=== PATIENT | male | born 1990 | race Caucasian/White ===

== ENCOUNTER 2017-05-30 11:52 | Emergency (ER) | payer SELFPAY ==
[2017-05-30] MEDS ORDERED: Sodium Chloride 0.9% 10 ML Syringe FLUSH PRN (12:16)
[2017-05-30] MEDS ORDERED: Sodium Chloride 0.9% 2.5 ML Syringe FLUSH PRN (12:16)
[2017-05-30] MEDS ORDERED: Sodium Chloride 0.9% 1,000 ML IV ONE (12:16)
[2017-05-30] MEDS ORDERED: Ondansetron 4 MG/2 ML SDV IVPUSH ONE (12:16)
--- NOTE | 2017-05-30 12:19 | EDM.PDOC ---
ED HPI GENERAL MEDICAL PROBLEM - General Chief Complaint: General Stated Complaint: vomiting,cough Time Seen by Provider: 05/30/17 12:09 - History of Present Illness INITIAL COMMENTS - FREE TEXT/NARRATIVE: HISTORY AND PHYSICAL: History of present illness: The patient is a healthy 27-year-old male with a history of appendectomy and inguinal hernia repair and presents with complaints of profuse repetitive vomiting that started last night after he got home from work. Patient says that he had a normal day and ate normally but did have leftover [place] food for dinner. He said they certainly started feeling nauseated and then had multiple episodes of vomiting and feels like he cannot tolerate anything by mouth. He is feeling lightheaded but has not passed out and has no chest pain or shortness of breath but does have a headache since after vomiting. Patient has felt feverish and chilly but has not documented temperature and has no upper respiratory complaints. He complains of no abdominal pain and no diarrhea. He has not had recent travel and he did not try any [id number] medications for these symptoms ;he denies alcohol use Review of systems: As per history of present illness and below otherwise all systems reviewed and negative. Past medical history: As per history of present illness and as reviewed below otherwise noncontributory. Surgical history: As per history of present illness and as reviewed below otherwise noncontributory. Social history: No reported history of drug or alcohol abuse. Family history: As per history of present illness and as reviewed below otherwise noncontributory. Physical exam: Gen.: Well-developed well-nourished thin man who is nontoxic and speaking clearly and easily. Vital signs of been reviewed by me HEENT: Atraumatic, normocephalic, pupils reactive, negative for conjunctival pallor or scleral icterus, mucous membranes tacky, throat clear, neck supple, nontender, trachea midline. Lungs: Clear to auscultation, breath sounds equal bilaterally, chest nontender. Heart: S1S2, regular rate and rhythm no overt murmurs Abdomen: Soft, nondistended, nontender. NABS Pelvis: Deferred Genitourinary: Deferred. Rectal: Deferred. Extremities: Atraumatic, negative for cords or calf pain. Neurovascular unremarkable. Neuro: Awake, alert, oriented. Cranial nerves II through XII unremarkable. Cerebellum unremarkable. Motor and sensory unremarkable throughout. Exam nonfocal. Diagnostics: CBC CMP amylase lipase UA Therapeutics: IV fluids Zofran--- these note that the patient refused the IV because he is afraid of needles rule out the blood draw to occur. I will give him Zofran ODT 1335:Patient is currently taking a by mouth challenge. He is aware that all labs are normal and that if he tolerates by mouth that we can go ahead and plan discharge Impression: Vomiting resolved Definitive disposition and diagnosis as appropriate pending reevaluation and review of above. - Related Data Allergies Allergy/AdvReac Type Severity Reaction Status Date / Time pseudoephedrine Allergy Hyperactivi Verified 05/30/17 12:08 [From Actifed] ty triprolidine [From Actifed] Allergy Hyperactivi Verified 05/30/17 12:08 ty Home Meds: Home Meds . [No Known Home Meds] 05/30/17 [History] ED ROS GENERAL - Review of Systems Review Of Systems: ROS reveals no pertinent complaints other than HPI. ED EXAM, GENERAL - Physical Exam Exam: See Below (See dictation) Course - Vital Signs Last Recorded V/S: Last Vital Signs Temp 36.9 C 05/30/17 12:04 Pulse 76 05/30/17 12:04 Resp 16 05/30/17 12:04 BP 110/59 L 05/30/17 12:04 Pulse Ox 98 05/30/17 12:04 - Orders/Labs/Meds Labs: Laboratory Tests 05/30/17 05/30/17 05/30/17 Range/Units 12:23 12:23 13:30 WBC 7.37 (4.0-11.0) K/uL RBC 4.48 L (4.50-5.90) M/uL Hgb 15.3 (13.0-17.0) g/dL Hct 44.0 (38.0-50.0) % MCV 98.2 H (80.0-98.0) fL MCH 34.2 H (27.0-32.0) pg MCHC 34.8 (31.0-37.0) g/dL RDW Std Deviation 46.7 (28.0-62.0) fl RDW Coeff of Jami 13 (11.0-15.0) % Plt Count 343 (150-400) K/uL MPV 10.10 (7.40-12.00) fL Neut % (Auto) 34.3 L (48.0-80.0) % Lymph % (Auto) 54.4 H (16.0-40.0) % [place] % (Auto) 8.7 (0.0-15.0) % Eos % (Auto) 1.8 (0.0-7.0) % Baso % (Auto) 0.8 (0.0-1.5) % Neut # (Auto) 2.5 (1.4-5.7) K/uL Lymph # (Auto) 4.0 H (0.6-2.4) K/uL [place] # (Auto) 0.6 (0.0-0.8) K/uL Eos # (Auto) 0.1 (0.0-0.7) K/uL Baso # (Auto) 0.1 (0.0-0.1) K/uL Nucleated RBC % 0.0 /100WBC Nucleated RBCs # 0 K/uL Sodium 141 (136-146) mmol/L Potassium 4.2 (3.5-5.1) mmol/L Chloride 108 (98-110) mmol/L Carbon Dioxide 25 (21-31) mmol/L BUN 17 (6.0-23.0) mg/dL Creatinine 0.8 (0.6-1.5) mg/dL Est Cr Clr Drug Dosing 97.22 mL/min Estimated GFR (MDRD) > 60.0 ml/min Glucose 86 (60-110) mg/dL Calcium 9.7 (8.8-10.8) mg/dL Total Bilirubin 0.7 (0.1-1.5) mg/dL AST 23 (5-40) IU/L ALT 24 (8-54) IU/L Alkaline Phosphatase 99 (40-150) Total Protein 7.8 (6.0-8.0) g/dL Albumin 4.7 (3.5-5.0) g/dL Globulin 3.1 (2.0-3.5) g/dL Albumin/Globulin Ratio 1.5 (1.3-2.8) Amylase 40 (10-90) U/L Lipase 14 (7-80) U/L Urine Color YELLOW Urine Appearance CLEAR Urine pH 6.0 (5.0-8.0) Ur Specific [place] >= 1.030 (1.001-1.035) Urine Protein NEGATIVE (NEGATIVE) mg/dL Urine Glucose (UA) NEGATIVE (NEGATIVE) mg/dL Urine Ketones NEGATIVE (NEGATIVE) mg/dL Urine Occult Blood NEGATIVE (NEGATIVE) Urine Nitrite NEGATIVE (NEGATIVE) Urine Bilirubin NEGATIVE (NEGATIVE) Urine Urobilinogen 0.2 (<2.0) EU/dL Ur Leukocyte Esterase NEGATIVE (NEGATIVE) Urine RBC NONE SEEN (0-2/HPF) Urine WBC 0-2 (0-5/HPF) Ur Epithelial Cells RARE (NONE-FEW) Urine Bacteria FEW (NEGATIVE) Urine Mucus LIGHT (NONE-MOD) Meds: Medications Discontinued Medications Generic Name Dose Route Start Last Admin Trade Name Freq PRN Reason Stop Dose Admin Sodium Chloride 1,000 mls @ 999 mls/hr 05/30/17 12:16 05/30/17 13:38 Normal Saline IV 05/30/17 13:16 Not Given STAT ONE Ondansetron HCl 4 mg 05/30/17 12:16 05/30/17 13:38 Zofran IVPUSH 05/30/17 12:17 Not Given ONETIME ONE Ondansetron HCl 4 mg 05/30/17 13:11 05/30/17 13:16 Zofran Odt PO 05/30/17 13:12 4 mg ONETIME ONE Administration Sodium Chloride 10 ml 05/30/17 12:16 Saline Flush FLUSH ASDIRECTED PRN Keep Vein Open Sodium Chloride 2.5 ml 05/30/17 12:16 Saline Flush FLUSH ASDIRECTED PRN Keep Vein Open Departure - Departure Time of Disposition: 14:00 Disposition: Home, Self-Care 01 Condition: Good Clinical Impression: Vomiting Qualifiers: Vomiting type: unspecified Vomiting Intractability: non-intractable Nausea presence: with nausea Qualified Code(s): R11.2 - Nausea with vomiting, unspecified - Discharge Information Referrals: PCP,None [Primary Care Provider] - Forms: ED Department Discharge Additional Instructions: The following information is given to patients seen in the emergency department who are being discharged to home. This information is to outline your options for follow-up care. We provide all patients seen in our emergency department with a follow-up referral. The need for follow-up, as well as the timing and circumstances, are variable depending upon the specifics of your emergency department visit. If you don't have a primary care physician on staff, we will provide you with a referral. We always advise you to contact your personal physician following an emergency department visit to inform them of the circumstance of the visit and for follow-up with them and/or the need for any referrals to a consulting specialist. The emergency department will also refer you to a specialist when appropriate. This referral assures that you have the opportunity for followup care with a specialist. All of these measure are taken in an effort to provide you with optimal care, which includes your followup. Under all circumstances we always encourage you to contact your private physician who remains a resource for coordinating your care. When calling for followup care, please make the office aware that this follow-up is from your recent emergency room visit. If for any reason you are refused follow-up, please contact the [facility] emergency department at and ask to speak to the emergency department charge nurse. [facility] Primary care- Internal Medicine and Family [place] [phone] Please eat a bland diet and push hydration such as water and Gatorade for the next 24-36 hours. Please follow-up in our clinic in the next few days for reevaluation and further care and return to ER as needed and as discussed
[2017-05-30 13:03] LABS: CHLORIDE,CL 108 mmol/L (98-110); SODIUM,NA 141 mmol/L (136-146)
[2017-05-30] MEDS ORDERED: Ondansetron 4 MG Tab.DIS PO ONE (13:11)
== END 2017-05-30 14:22 | disposition home or self-care (01) ==
LOC: MW.ED 11:52
DX: R11.2 Nausea with vomiting, unspecified (principal); Z88.8 Allergy status to other drugs, medicaments and biological substances; Z90.49 Acquired absence of other specified parts of digestive tract
CPT/HCPCS: 36415; 80053; 81001; 82150; 83690; 85025; 99284; A9270

== ENCOUNTER 2017-07-03 09:34 | Emergency (ER) | payer SELFPAY ==
[2017-07-03] MEDS ORDERED: Ondansetron 4 MG Tab.DIS PO ONE (09:55)
--- NOTE | 2017-07-03 09:57 | EDM.PDOC ---
ED HPI GENERAL MEDICAL PROBLEM - General Chief Complaint: ENT Problem Stated Complaint: COLD RUNNING NOSE Time Seen by Provider: 07/03/17 09:45 Source of Information: Reports: Patient History Limitations: Reports: No Limitations - History of Present Illness INITIAL COMMENTS - FREE TEXT/NARRATIVE: History of present illness: [] Review of systems: As per history of present illness and below otherwise all systems reviewed and negative. Past medical history: As per history of present illness and as reviewed below otherwise noncontributory. Surgical history: As per history of present illness and as reviewed below otherwise noncontributory. Social history: No reported history of drug or alcohol abuse. Family history: As per history of present illness and as reviewed below otherwise noncontributory. Physical exam: General: Well developed, well nourished in NAD HEENT: Atraumatic, normocephalic, pupils reactive, negative for conjunctival pallor or scleral icterus, mucous membranes moist, throat clear, neck supple, nontender, trachea midline. Lungs: Clear to auscultation, breath sounds equal bilaterally, chest nontender. Heart: S1S2, regular, negative for clicks, rubs, or JVD. Abdomen: Soft, nondistended, nontender. Negative for masses or hepatosplenomegaly. Negative for costovertebral tenderness. Pelvis: Stable nontender. Genitourinary: Deferred. Rectal: Deferred. Extremities: Atraumatic, negative for cords or calf pain. Neurovascular unremarkable. Neuro: Awake, alert, oriented. Cranial nerves II through XII unremarkable. Cerebellum unremarkable. Motor and sensory unremarkable throughout. Exam nonfocal. Diagnostics: [] Therapeutics: [] Impression: [] Plan: [] Definitive disposition and diagnosis as appropriate pending reevaluation and review of above. body Pain Score (Numeric/FACES): 4 - Related Data Allergies Allergy/AdvReac Type Severity Reaction Status Date / Time pseudoephedrine Allergy Hyperactivi Verified 07/03/17 09:36 [From Actifed] ty triprolidine [From Actifed] Allergy Hyperactivi Verified 07/03/17 09:36 ty Home Meds: Home Meds . [No Known Home Meds] 05/30/17 [History] Past Medical History - Past Health History Medical/Surgical History: Denies Medical/Surgical History Musculoskeletal History: Reports: Other (See Below) Other Musculoskeletal History: scoliosis Psychiatric History: Reports: ADD, ADHD - Past Surgical History HEENT Surgical History: Reports: Naso-Sinus Surgery GI Surgical History: Reports: Appendectomy, Hernia, Abdominal Social & Family History - Family History Family Medical History: Noncontributory - Tobacco Use Smoking Status *Q: Current Every Day Smoker Years of Tobacco use: 17 Packs/Tins Daily: 1 - Caffeine Use Caffeine Use: Reports: Coffee, Energy Drinks, Soda - Recreational Drug Use Recreational Drug Use: No Drug Use in Last 12 Months: Yes Recreational Drug Type: Reports: Marijuana/Hashish Recreational Drug Use Frequency: Monthly ED ROS GENERAL - Review of Systems Review Of Systems: See Below (See history of present illness) ED EXAM, GENERAL - Physical Exam Exam: See Below (see history of present illness) Course - Vital Signs Last Recorded V/S: Last Vital Signs Temp 99.4 F 07/03/17 09:40 Pulse 86 07/03/17 09:40 Resp 18 07/03/17 09:40 BP 113/54 L 07/03/17 09:40 Pulse Ox 98 07/03/17 09:40 - Orders/Labs/Meds Meds: Medications Discontinued Medications Generic Name Dose Route Start Last Admin Trade Name Freq PRN Reason Stop Dose Admin Ondansetron HCl 4 mg 07/03/17 09:55 07/03/17 10:21 Zofran Odt PO 07/03/17 09:56 4 mg ONETIME ONE Administration Departure - Departure Time of Disposition: 10:29 Disposition: Home, Self-Care 01 Condition: Good Clinical Impression: Viral syndrome - Discharge Information Referrals: PCP,None [Primary Care Provider] - Forms: ED Department Discharge Additional Instructions: The following information is given to patients seen in the emergency department who are being discharged to home. This information is to outline your options for follow-up care. We provide all patients seen in our emergency department with a follow-up referral. The need for follow-up, as well as the timing and circumstances, are variable depending upon the specifics of your emergency department visit. If you don't have a primary care physician on staff, we will provide you with a referral. We always advise you to contact your personal physician following an emergency department visit to inform them of the circumstance of the visit and for follow-up with them and/or the need for any referrals to a consulting specialist. The emergency department will also refer you to a specialist when appropriate. This referral assures that you have the opportunity for follow-up care with a specialist. All of these measure are taken in an effort to provide you with optimal care, which includes your follow-up. Under all circumstances we always encourage you to contact your private physician who remains a resource for coordinating your care. When calling for follow-up care, please make the office aware that this follow-up is from your recent emergency room visit. If for any reason you are refused follow-up, please contact the [facility] Emergency Department at and asked to speak to the emergency department charge nurse. Tylenol or Motrin for fevers and pain use [id number] meds for symptomatic relief follow-up with primary care [facility] [address] [place] [id number]
== END 2017-07-03 10:39 | disposition home or self-care (01) ==
LOC: MW.ED 09:34
DX: B34.9 Viral infection, unspecified (principal); F17.210 Nicotine dependence, cigarettes, uncomplicated; Z88.8 Allergy status to other drugs, medicaments and biological substances
CPT/HCPCS: 87804; 99283; A9270; 99282

== ENCOUNTER 2017-07-05 00:02 | Emergency (ER) | payer SELFPAY ==
--- NOTE | 2017-07-05 00:30 | EDM.PDOC ---
ED HPI GENERAL MEDICAL PROBLEM - General Chief Complaint: General Stated Complaint: LIGHTHEADED/DIZZY Time Seen by Provider: 07/05/17 00:12 - History of Present Illness INITIAL COMMENTS - FREE TEXT/NARRATIVE: HISTORY AND PHYSICAL: History of present illness: The patient is a 27-year-old male who was seen here approximately 30 hours ago on July 03 at 9 AM for complaints of body aches sinus congestion cough runny nose and some intermittent vomiting. He was tested for influenza which was negative and he was advised to do symptomatic care at home. He represented tonight saying that he's feeling somewhat lightheaded woozy and he's having more profound body aches and pains and he is concerned. He has not had vomiting or diarrhea no chest pain or shortness of breath and no abdominal pain. He doesn 't have a specific headache or neck pain but he is terribly congested and feels that he cannot get any fluid out of the sinuses or nose. He had a sore throat but that has improved today. He says he's been drinking a lot of fluids and his been having normal urine output. He has not actually fallen down or passed out with the symptoms but he just feels lightheaded. I personally saw this patient back on May 30 for vomiting after eating Yi food at that time he'll lab work to be done but he refused an IV and IV medications. Review of systems: As per history of present illness and below otherwise all systems reviewed and negative. Past medical history: As per history of present illness and as reviewed below otherwise noncontributory. Surgical history: As per history of present illness and as reviewed below otherwise noncontributory. Social history: No reported history of drug or alcohol abuse. Family history: As per history of present illness and as reviewed below otherwise noncontributory. Physical exam: Gen.: Well-developed well-nourished thin man who is nontoxic and vital signs of been reviewed by me. When the patient speaks he has deep nasal quality to his voice HEENT: Atraumatic, normocephalic, pupils reactive, negative for conjunctival pallor or scleral icterus, mucous membranes moist, throat clear, neck supple, nontender, trachea midline. There is no cervical adenopathy or nuchal rigidity. The turbinates are boggy bilaterally and there is some mild sinus tenderness on palpation in the maxillary area. Lungs: Clear to auscultation, breath sounds equal bilaterally, chest nontender. Heart: S1S2, regular rate and rhythm no overt murmurs Abdomen: Soft, nondistended, nontender. NABS Pelvis: Deferred Genitourinary: Deferred. Rectal: Deferred. Extremities: Atraumatic, negative for cords or calf pain. Neurovascular unremarkable. Neuro: Awake, alert, oriented. Cranial nerves II through XII unremarkable. Cerebellum unremarkable. Motor and sensory unremarkable throughout. Exam nonfocal. Diagnostics: Orthostatic vitals I offered the patient blood work but because of his fear of needles he would like to defer that at this time. Therapeutics: [] Impression: Viral illness/sinusitis/lightheadedness and malaise Definitive disposition and diagnosis as appropriate pending reevaluation and review of above. body pain Pain Score (Numeric/FACES): 6 - Related Data Allergies Allergy/AdvReac Type Severity Reaction Status Date / Time pseudoephedrine Allergy Hyperactivi Verified 07/05/17 00:15 [From Actifed] ty triprolidine [From Actifed] Allergy Hyperactivi Verified 07/05/17 00:15 ty Home Meds: Home Meds . [No Known Home Meds] 05/30/17 [History] Past Medical History - Past Health History Medical/Surgical History: Denies Medical/Surgical History HEENT History: Reports: None Cardiovascular History: Reports: None Respiratory History: Reports: None Gastrointestinal History: Reports: None Genitourinary History: Reports: None Musculoskeletal History: Reports: Other (See Below) Other Musculoskeletal History: scoliosis Neurological History: Reports: None Psychiatric History: Reports: ADD, ADHD Endocrine/Metabolic History: Reports: None Hematologic History: Reports: None Immunologic History: Reports: None Oncologic (Cancer) History: Reports: None Dermatologic History: Reports: None - Infectious Disease History Infectious Disease History: Reports: None - Past Surgical History Head Surgeries/Procedures: Reports: None HEENT Surgical History: Reports: Naso-Sinus Surgery GI Surgical History: Reports: Appendectomy, Hernia, Abdominal Social & Family History - Family History Family Medical History: Noncontributory - Tobacco Use Smoking Status *Q: Current Every Day Smoker Years of Tobacco use: 17 Packs/Tins Daily: 1 - Caffeine Use Caffeine Use: Reports: Coffee, Soda - Recreational Drug Use Recreational Drug Use: No Drug Use in Last 12 Months: Yes Recreational Drug Type: Reports: Marijuana/Hashish Recreational Drug Use Frequency: Monthly ED ROS GENERAL - Review of Systems Review Of Systems: ROS reveals no pertinent complaints other than HPI. ED EXAM, GENERAL - Physical Exam Exam: See Below (see dictation) Course - Vital Signs Last Recorded V/S: Last Vital Signs Temp 37.1 C 07/05/17 00:15 Pulse 92 07/05/17 00:15 Resp 18 07/05/17 00:15 BP 110/62 07/05/17 00:15 Pulse Ox 98 07/05/17 00:15 Orthostatic Blood Pressure [ 110/56 Supine] Orthostatic Blood Pressure [ 106/71 Standing] Orthostatic Blood Pressure [ 110/62 Sitting] - Orders/Labs/Meds Orders: Active Orders 24 hr Category Date Time Status Orthostatic Vital Signs [RC] ASDIRECTED Care 07/05/17 00:08 Active Departure - Departure Time of Disposition: 00:27 Disposition: Home, Self-Care 01 Condition: Good Clinical Impression: Viral illness Sinusitis Qualifiers: Sinusitis location: unspecified location Chronicity: acute Recurrence: not specified as recurrent Qualified Code(s): J01.90 - Acute sinusitis, unspecified - Discharge Information Referrals: PCP,None [Primary Care Provider] - Additional Instructions: The following information is given to patients seen in the emergency department who are being discharged to home. This information is to outline your options for follow-up care. We provide all patients seen in our emergency department with a follow-up referral. The need for follow-up, as well as the timing and circumstances, are variable depending upon the specifics of your emergency department visit. If you don't have a primary care physician on staff, we will provide you with a referral. We always advise you to contact your personal physician following an emergency department visit to inform them of the circumstance of the visit and for follow-up with them and/or the need for any referrals to a consulting specialist. The emergency department will also refer you to a specialist when appropriate. This referral assures that you have the opportunity for followup care with a specialist. All of these measure are taken in an effort to provide you with optimal care, which includes your followup. Under all circumstances we always encourage you to contact your private physician who remains a resource for coordinating your care. When calling for followup care, please make the office aware that this follow-up is from your recent emergency room visit. If for any reason you are refused follow-up, please contact the [facility] emergency department at and ask to speak to the emergency department charge nurse. [facility] Primary care- Internal Medicine and Family [address] [address] Push hydration as we discussed and use [id number] Flonase to help open up the sinus passages. Please sleep with cool mist humidifier and sleep on 2-3 pillows to promote drainage of your sinuses. Use [id number] Cherry or Claritin to help dry the sinus fluid. Take all medications as prescribed via [facility], Augmentin,. Please call and follow-up with one of our clinic providers and please remember that the sinusitis is treated with antibiotics but her body aches and other viral symptoms are treated symptomatically with the other medications. These use Tylenol and ibuprofen for body aches and any fevers. - My Orders Last 24 Hours: My Active Orders 07/05/17 00:08 Orthostatic Vital Signs [RC] ASDIRECTED - Assessment/Plan Last 24 Hours: My Active Orders 07/05/17 00:08 Orthostatic Vital Signs [RC] ASDIRECTED
== END 2017-07-05 00:48 | disposition home or self-care (01) ==
LOC: MW.ED 00:02
DX: J01.90 Acute sinusitis, unspecified (principal); B34.9 Viral infection, unspecified; F17.210 Nicotine dependence, cigarettes, uncomplicated; Z88.8 Allergy status to other drugs, medicaments and biological substances
CPT/HCPCS: 99283